=== PATIENT | female | born 1945 | race Caucasian/White ===

== ENCOUNTER → 2020-04-01 11:41 | Outpatient (CLI) | payer MEDICARE, OTHER ==
[2020-04-02 09:12] LABS: ANA REFLEX - DIRECT Negative (Negative)
[2020-04-03 16:09] LABS: ANCA - ANTIMYELOPEROXIDASE <9.0 U/mL (0.0-9.0); ANCA - ANTIPROTEINASE 3 <3.5 U/mL (0.0-3.5); ANCA - ATYPICAL <1:20 titer (Neg:<1:20); ANCA - CYTOPLASMIC <1:20 titer (Neg:<1:20); ANCA - PERINUCLEAR <1:20 titer (Neg:<1:20); ANTIPROTEINASE 3 (PR-3) <3.5 U/mL (0.0-3.5)
== END | disposition home or self-care (01) ==
LOC: D.LAB 11:41
PROVIDERS: ATTEND Internal Medicine Pulmonary Disease
DX: J84.9 Interstitial pulmonary disease, unspecified (principal)

== ENCOUNTER → 2020-04-21 14:25 | Outpatient (CLI) | payer MEDICARE, OTHER | END | disposition home or self-care (01) | LOC: D.LAB 14:25 | PROVIDERS: ATTEND Internal Medicine Pulmonary Disease | DX: J84.9 Interstitial pulmonary disease, unspecified (principal); Z11.59 Encounter for screening for other viral diseases ==